=== PATIENT | male | born 2000 | race Caucasian/White ===

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

== ENCOUNTER 2022-04-26 08:37 | Emergency (ER) | payer OTHER, MEDICAID, SELFPAY ==
[2022-04-26] VITALS (26 sets, daily range): BP systolic 97–153; BP diastolic 39–91; PULSE 51–91; RESP 11–28; TEMP 36.6–36.7; O2SAT 96–100; BMI 32.6
--- NOTE | 2022-04-26 08:46 | DI.RAD.S_ITS ---
PROCEDURE: XR CHEST 1V INDICATIONS: chest pain TECHNIQUE: One view of the chest was acquired. COMPARISON: None. FINDINGS: Surgical changes and devices: None. Lungs and pleura: Lungs are clear. No pleural effusions or pneumothorax. Mediastinum: Mediastinal contours appear normal. Heart size is normal. Bones and chest wall: No suspicious bony lesions. Overlying soft tissues appear unremarkable. IMPRESSION: No evidence acute pulmonary process. Dictated by: Monico Wood M.D. on 04/26/2022 at 9:58 Approved by: Monico Wood M.D. on 04/26/2022 at 9:59
--- NOTE | 2022-04-26 08:52 | ED_ITS ---
HPI - Chest Pain General Chief Complaint: Chest Pain Stated Complaint: chest pain Time Seen by Provider: 04/26/22 08:42 Source: patient Mode of arrival: Ambulatory History of Present Illness HPI narrative: Patient here for complaints of nonreproducible right sided chest pain off and on for the past 3 months. Episodes are sporadic and not every day. They are sharp pain that radiates from right chest to sternum. No back pain no nausea no sweating no dyspnea. Last episode was 2 days ago. None today. Patient does not smoke. No history of hypercholesteremia hypertension. Patient states his father of a heart attack when he was 50 years old. Did smoke and did have high blood pressure. Patient denies any exertional chest pain or dyspnea. This can occur at rest or with movement. However when he does walk, he does not get chest pain. Patient is a catering truck driver. No prior history of blood clots in legs or lungs. Patient in no distress, no chest pain at this time. His primary care informed him to go to the emergency department, has not been in to see primary care due to scheduling, Dr. Lucas Related Data Home Medications Medication Instructions Recorded Confirmed No Known Home Medications 04/26/22 04/26/22 Allergies Allergy/AdvReac Type Severity Reaction Status Date / Time No Known Drug Allergies Allergy Verified 04/26/22 09:15 Review of Systems Review of Systems Narrative: GENERAL: negative chills, fatigue, malaise, fever, sweats. HEENT: negative sinus pain, ear pain, sore throat RESPIRATORY: negative dyspnea, cough CARDIOVASCULAR: Positive chest pain, negative palpitations GASTROINTESTINAL: negative nausea, vomiting, abdominal pain : negative dysuria, frequency, hematuria MUSCULOSKELETAL: negative muscle or bony pain SKIN: negative rash, skin lesions NEUROLOGIC: negative weakness, numbness ROS Unobtainable: All systems reviewed & are unremarkable except as noted in HPI and below Patient History Medical History (Updated 04/26/22 @ 09:07 by Nicole Ramirez MD) No significant past medical history Surgical History No pertinent past surgical history Social History Smoking Status: Never smoker Smoking Status: Never smoker alcohol intake frequency: other Substance Use Type: does not use Exam Narrative Exam Narrative: GENERAL: in no distress, not toxic not dyspneic HEAD: Normocephalic. EYES: Pupils equal round ENT: Mucous membranes moist. NECK: Trachea midline. CARDIOVASCULAR: Regular rate and rhythm without murmurs, chest is nontender, strong radial and carotid pulses RESPIRATORY: Clear to auscultation. Breath sounds equal bilaterally. No wheezes, rales, or rhonchi. GASTROINTESTINAL: Abdomen soft, non-tender EXTREMITIES: No gross deformities. BACK: No flank tenderness. NEURO: AOx4. SKIN: Warm and dry PSYCH: Not anxious, is cooperative Initial Vital Signs Initial Vital Signs: Vital Signs Temperature 98 F 04/26/22 08:47 Pulse Rate 91 H 04/26/22 08:47 Respiratory Rate 17 04/26/22 08:47 Blood Pressure 144/91 H 04/26/22 08:47 Pulse Oximetry 98 04/26/22 08:47 Oxygen Delivery Method 04/26/22 08:47 Course Orders Ordered: Discontinued Medications Sodium Chloride (Normal Saline 0.9%) 1,000 mls @ 1,000 mls/hr IV BOLUS ONE Stop: 04/26/22 10:04 Last Infusion: 04/26/22 10:23 Dose: 0 mls/hr Documented By: Admin: 04/26/22 09:14 Dose: 1,000 mls/hr Documented By: MAICOL Ondansetron HCl (Ondansetron 4 Mg/2 Ml Inj) 4 mg IV NOW ONE Stop: 04/26/22 09:09 Last Admin: 04/26/22 09:14 Dose: 4 mg Documented By: MAICOL Vital Signs Vital signs: Vital Signs - 8 hr 04/26/22 08:47 04/26/22 09:01 04/26/22 09:02 Temperature 98 F Pulse Rate 91 H 51 L Respiratory Rate 17 20 Blood Pressure 144/91 H 97/39 L Pulse Oximetry 98 98 Oxygen Delivery Method Room Air 04/26/22 09:13 04/26/22 09:13 04/26/22 09:15 Temperature Pulse Rate 63 Respiratory Rate 15 Blood Pressure 107/51 L 111/51 L Pulse Oximetry 96 Oxygen Delivery Method 04/26/22 09:15 04/26/22 09:30 04/26/22 09:30 Temperature Pulse Rate 63 64 Respiratory Rate 16 17 Blood Pressure 110/52 L Pulse Oximetry 96 99 Oxygen Delivery Method 04/26/22 09:45 04/26/22 09:45 04/26/22 10:00 Temperature Pulse Rate 60 Respiratory Rate 14 Blood Pressure 97/56 L 105/56 L Pulse Oximetry 100 Oxygen Delivery Method 04/26/22 10:00 04/26/22 10:15 04/26/22 10:15 Temperature Pulse Rate 74 81 Respiratory Rate 17 28 H Blood Pressure 103/54 L Pulse Oximetry 98 98 Oxygen Delivery Method Room Air 04/26/22 10:30 04/26/22 10:30 04/26/22 10:45 Temperature Pulse Rate 80 Respiratory Rate 23 Blood Pressure 119/55 L 119/56 L Pulse Oximetry 99 Oxygen Delivery Method Room Air 04/26/22 10:45 04/26/22 11:00 04/26/22 11:00 Temperature Pulse Rate 75 74 Respiratory Rate 12 11 L Blood Pressure 126/58 L Pulse Oximetry 98 97 Oxygen Delivery Method 04/26/22 11:15 04/26/22 11:15 04/26/22 11:30 Temperature Pulse Rate 70 78 Respiratory Rate 17 19 Blood Pressure 110/47 L Pulse Oximetry 98 98 Oxygen Delivery Method 04/26/22 11:31 04/26/22 11:31 04/26/22 11:45 Temperature Pulse Rate 79 Respiratory Rate 18 Blood Pressure 129/59 L 117/59 L Pulse Oximetry 98 Oxygen Delivery Method Room Air 04/26/22 11:45 04/26/22 12:00 04/26/22 12:00 Temperature Pulse Rate 82 81 Respiratory Rate 18 19 Blood Pressure 105/56 L Pulse Oximetry 98 97 Oxygen Delivery Method 04/26/22 12:15 04/26/22 12:15 04/26/22 12:30 Temperature Pulse Rate 80 Respiratory Rate 17 Blood Pressure 109/59 L 110/55 L Pulse Oximetry 96 Oxygen Delivery Method 04/26/22 12:30 04/26/22 12:58 04/26/22 12:58 Temperature Pulse Rate 78 83 Respiratory Rate 16 13 Blood Pressure 140/65 Pulse Oximetry 97 97 Oxygen Delivery Method 04/26/22 13:00 04/26/22 13:01 04/26/22 13:01 Temperature Pulse Rate 81 81 Respiratory Rate 16 16 Blood Pressure 127/57 L Pulse Oximetry 96 96 Oxygen Delivery Method Room Air 04/26/22 13:15 04/26/22 13:15 04/26/22 13:20 Temperature Pulse Rate 74 80 Respiratory Rate 18 22 Blood Pressure 124/62 Pulse Oximetry 97 97 Oxygen Delivery Method 04/26/22 13:20 04/26/22 13:30 04/26/22 13:30 Temperature Pulse Rate 77 Respiratory Rate 14 Blood Pressure 153/66 H 138/61 Pulse Oximetry 97 Oxygen Delivery Method 04/26/22 14:09 Temperature 98.1 F Pulse Rate 79 Respiratory Rate 23 Blood Pressure 135/69 Pulse Oximetry 97 Oxygen Delivery Method Room Air MDM - Chest Pain Lab Data 04/26/22 08:55 04/26/22 08:55 Labs: Lab Results 04/26/22 04/26/22 04/26/22 Range/Units 08:55 08:55 08:55 WBC 6.0 (4.5-11.0) X10^3/uL RBC 5.04 (4.5-5.9) X10^6/uL Hgb 15.0 (13.5-17.5) g/dL Hct 44.2 (41-53) % MCV 87.7 (80-100) fL MCH 29.8 (26-34) PG MCHC 34.0 (30-36) % RDW 12.8 (11.6-14.8) % Plt Count 213 (150-400) X10^3/uL Neut % (Auto) 56.5 (50-75) % Lymph % (Auto) 31.1 (25-40) % [place] % (Auto) 7.3 (3-14) % Eos % (Auto) 4.1 H (2-4) % Baso % (Auto) 1.0 (0-2) % Neut # (Auto) 3400 (8056-3928) /uL Lymph # (Auto) 1900 (4131-2052) /uL [place] # (Auto) 400 (0-900) /uL Eos # (Auto) 200 (0-450) /uL Baso # (Auto) 100 (0-100) /uL PT 11.9 (10.1-12.7) SECONDS INR 1.0 (0.9-1.3) APTT 32 (26-36) SECONDS D-Dimer (<500) ng/ml Sodium 139 (137-145) mmol/L Potassium 4.1 (3.4-5.1) mmol/L Chloride 100 (98-107) mmol/L Carbon Dioxide 27 (22-32) mmol/L BUN 13 (9-20) mg/dL Creatinine 0.87 (0.66-1.25) mg/dL Estimated GFR > 60 (>60) mL/min BUN/Creatinine Ratio 14.9 (6-22) Glucose 92 (70-100) mg/dL Calcium 9.0 (8.4-10.2) mg/dL Magnesium 1.8 (1.6-2.3) mg/dL Total Bilirubin 0.8 (0.2-1.3) mg/dL AST 31 (17-59) IU/L ALT 37 (<50) IU/L Alkaline Phosphatase 50 (38-126) U/L Total Creatine Kinase 98 (55-170) U/L CK-MB (CK-2) TNP CK-MB (CK-2) Rel Index TNP Troponin I < 0.012 (0.01-0.034) ng/mL Total Protein 7.8 (6.3-8.2) g/dL Albumin 4.5 (3.5-5.0) g/dL Globulin 3.3 (1.7-4.1) g/dL Albumin/Globulin Ratio 1.4 (1.0-2.8) Lipase 45 (23-300) U/L SARS-CoV-2 (PCR) (Negative) 04/26/22 04/26/22 04/26/22 Range/Units 08:55 09:15 10:55 WBC (4.5-11.0) X10^3/uL RBC (4.5-5.9) X10^6/uL Hgb (13.5-17.5) g/dL Hct (41-53) % MCV (80-100) fL MCH (26-34) PG MCHC (30-36) % RDW (11.6-14.8) % Plt Count (150-400) X10^3/uL Neut % (Auto) (50-75) % Lymph % (Auto) (25-40) % [place] % (Auto) (3-14) % Eos % (Auto) (2-4) % Baso % (Auto) (0-2) % Neut # (Auto) (3160-0606) /uL Lymph # (Auto) (4815-4528) /uL [place] # (Auto) (0-900) /uL Eos # (Auto) (0-450) /uL Baso # (Auto) (0-100) /uL PT (10.1-12.7) SECONDS INR (0.9-1.3) APTT (26-36) SECONDS D-Dimer < 215 (<500) ng/ml Sodium (137-145) mmol/L Potassium (3.4-5.1) mmol/L Chloride (98-107) mmol/L Carbon Dioxide (22-32) mmol/L BUN (9-20) mg/dL Creatinine (0.66-1.25) mg/dL Estimated GFR (>60) mL/min BUN/Creatinine Ratio (6-22) Glucose (70-100) mg/dL Calcium (8.4-10.2) mg/dL Magnesium (1.6-2.3) mg/dL Total Bilirubin (0.2-1.3) mg/dL AST (17-59) IU/L ALT (<50) IU/L Alkaline Phosphatase (38-126) U/L Total Creatine Kinase (55-170) U/L CK-MB (CK-2) CK-MB (CK-2) Rel Index Troponin I < 0.012 (0.01-0.034) ng/mL Total Protein (6.3-8.2) g/dL Albumin (3.5-5.0) g/dL Globulin (1.7-4.1) g/dL Albumin/Globulin Ratio (1.0-2.8) Lipase (23-300) U/L SARS-CoV-2 (PCR) Negative (Negative) Point of Care Testing Glucose POC 88 Imaging Data Chest x-ray: Radiologist's Impression: [address] [address] XRay Report Signed Patient: Bao Francis MR#: [id number] : 2000 Acct:[id number] Age/Sex: 21 / M Date of Service: 04/26/22 Loc: ED Accession Number: [id number] ?? Procedure: XR chest 1V Ordering Provider: Nicole Ramirez MD PROCEDURE:? XR CHEST 1V ? INDICATIONS:? chest pain ? TECHNIQUE:? One view of the chest was acquired.? ? COMPARISON:? None. ? FINDINGS:? ? Surgical changes and devices:? None.? ? Lungs and pleura:? Lungs are clear.? No pleural effusions or pneumothorax.? ? Mediastinum:? Mediastinal contours appear normal.? Heart size is normal.? ? Bones and chest wall:? No suspicious bony lesions.? Overlying soft tissues appear unremarkable.? ? IMPRESSION:? No evidence acute pulmonary process. ? ? ? Dictated by: Monico Wood M.D. on 04/26/2022 at 9:58 ? ? Approved by: Monico Wood M.D. on 04/26/2022 at 9:59 ? Echocardiogram: Radiologist's Impression: [address] [address] Echocardiography Report Signed Patient: Bao Francis MR#: [id number] : 2000 Acct:[id number] Age/Sex: 21 / M Date of Service: 04/26/22 Loc: ED Accession Number: [id number] ?? Procedure: EC echo doppler complete Ordering Provider: Nicole Ramirez MD ? [facility]---------+? [facility]? +---------+ : ? :? [address] [place] [address]. ? : ? : : ? :? [place], [place] ? : ? : : ? :? [id number] ? : ? : : ? : ? Phone: [phone]? : ? : +[phone]? [phone]? +---------+ ? Echocardiogram Report + + :Name: BAO FRANCIS? Study Date: 04/26/2022 ? ? ? Height: 68 in? : :[facility] ? ? ? ReadingLocation: ? Weight: 215 lb : : ? Gender: Male ? BSA: 2.1 m2? ? : :: 2000? Age: 21 yrs? BP: 107/51 mmHg: :Reason For Study: CHEST PAIN ? : :Ordering Physician: JAMES,? : :NICOLE ROMAN ? Performed By: Sayda Zepeda? : :Referring: NICOLE RAMIREZ MD? : + + Interpretation Summary The ejection fraction is estimated to be 60-65%. Diastolic parameters suggest probable normal left ventricular diastolic function and normal filling pressures. The right ventricle is normal in size and function. No significant valvular abnormalities. Unable to estimate PASP. ? Procedure: ? A two-dimensional transthoracic echocardiogram with color flow and Doppler was performed. The study quality was technically good. There is no prior echocardiogram noted for this patient. The patient was in sinus rhythm with heart rates between 63-74 bpm during the exam. Left Ventricle: ? The left ventricle is normal in size and wall thickness. The ejection fraction is estimated to be 60-65%. Diastolic parameters suggest probable normal left ventricular diastolic function and normal filling pressures. Right Ventricle: ? The right ventricle is normal in size and function. Atria: ? The left atrial size is normal. Right atrial size is normal. There is no Doppler evidence for an interatrial shunt. Mitral Valve: ? The mitral valve is normal in structure and function. There is trace mitral regurgitation. Aortic Valve: ? The aortic valve is trileaflet. The aortic valve opens well. There is no aortic valve stenosis. No aortic regurgitation is present. Tricuspid Valve: ? The tricuspid valve is normal in structure and function. There is a trace or physiologic amount of tricuspid regurgitation. Pulmonic Valve: ? The pulmonic valve leaflets are thin and pliable; valve motion is normal. There is no pulmonic valvular regurgitation. Great Vessels: ? The aortic root is normal size. The dimensions of the ascending aorta are normal. The IVC is of normal diameter and collapses greater than 50% with a sniff. This suggests a low right atrial pressure of 3 mm Hg. Pericardium/ Pleura ? There is no pericardial effusion. There is no pleural effusion. ? MMode/2D Measurements & Calculations LVIDd: 5.0 cm? LVOT diam: 2.3 cm LVIDs: 3.5 cm? Ao root diam: 3.0 cm FS: 29.6 % ? asc Aorta Diam: 2.3 cm EPSS: 1.2 cm ? Ao Arch Diam (Prox Trans): 2.2 cm IVSd: 0.91 cm LVPWd: 0.90 cm LV aiken. diameter/BSA (cm/m^2): 2.4 LV sys. diameter/BSA (cm/m^2): 1.7 ? LA A2 area: 16.7 cm2 ? RA long axis: 5.6 cm LA A4 area: 16.7 cm2 ? RA area: 18.1 cm2 LA length (vol): 5.4 cm? RA vol: 49.7 ml LA vol: 43.9 ml? RA : 23.6 ml/m2 LA vol index: 20.8 ml/m2 ? IVC diam: 2.1 cm ? RVD1 (basal): 3.6 cm RVD2 (mid): 3.5 cm TAPSE: 1.8 cm ? Doppler Measurements & Calculations Ao V2 max: 101.6 cm/sec? LVOT Max Richie: 82.6 cm/sec Ao V2 mean: 67.0 cm/sec? LV V1 max P.7 mmHg Ao max P.1 mmHg? LV V1 VTI: 18.8 cm Ao mean P.1 mmHg ? LUDWIN(I,D): 3.6 cm2 Ao V2 VTI: 22.2 cm ? LUDWIN(V,D): 3.4 cm2 ? sev ratio: 0.85 ? LUDWIN indexed to BSA (cm^2/m^2): 1.7 ? MV E max richie: 99.9 cm/sec? PA V2 max: 122.3 cm/sec MV A max richie: 60.3 cm/sec? PA V2 mean: 79.9 cm/sec MV E/A: 1.7? PA mean P.0 mmHg Med Peak E' Richie: 12.7 cm/sec ? ? ? PA pr(Accel): 27.6 mmHg E/E' med: 7.9 Lat Peak E' Richie: 16.7 cm/sec E/E' lat: 6.0 E/e' average: 6.9 MV dec time: 0.17 sec ? SV(LVOT): 79.2 ml ? Reading Physician:11:48 AM MDM Narrative Medical decision making narrative: Patient here for complaints of nonreproducible right sided chest pain off and on for the past 3 months. Episodes are sporadic and not every day. They are sharp pain that radiates from right chest to sternum. No back pain no nausea no sweating no dyspnea. Last episode was 2 days ago. None today. Patient does not smoke. No history of hypercholesteremia hypertension. Patient states his father of a heart attack when he was 50 years old. Did smoke and did have high blood pressure. Patient denies any exertional chest pain or dyspnea. This can occur at rest or with movement. However when he does walk, he does not get chest pain. Patient is a catering truck driver. No prior history of blood clots in legs or lungs. Patient in no distress, no chest pain at this time. His primary care informed him to go to the emergency department, has not been in to see primary care due to scheduling, Dr. Lucas After exam and history CBC CMP coags troponin chest x-ray D-dimer were ordered. Differential diagnosis includes but not limited to chest pain/stable angina unstable angina/pulmonary embolism/dissection/gallbladder disease 9:00 a.m.. Patient had 2 episodes of bradycardia, 1st of present had a 12nd syncopal duration. This occurred during blood draw. However patient had a 2nd episode without any triggers. Blood sugar and normal saline 1 L IV bolus ordered MDM CC: Chest pain Complicating co-morbidities: None Data collected from: Patient Medical records reviewed: No prior visit for chest pain Exam documented above, pertinent findings include: Nontender chest on exam, clear and equal lung sounds Lab Test results independently reviewed as above. Pertinent findings: Troponin and repeat troponin normal, D-dimer normal Independently reviewed EKG as above normal sinus rhythm normal EKG rate 76 Imaging studies independently reviewed: Chest x-ray no acute process Consultations: 11:30 a.m. Spoke with hospitalist, dr lion, will see patient for evaluation 2:[address] p[address] lion, he has seen and evaluated patient and reviewed telemetry strips. The vagal episodes. At this time you will discharge patient home. Laboratory studies and echocardiogram are reassuring. He will right consult note and he will discharge patient Treatments: Normal saline Re-evaluations: 2:10 p.m.. Spoke with patient results again and his evaluation by hospitalist, he agrees with treatment plan and follow up with primary care. Discussion: Appropriate for discharge home. Patient has been evaluated by hospitalist. Troponin and echocardiogram and EKGs are otherwise reassuring. Patient had vasovagal episode here. This is not new according to patient. He is had this in the past. Return precautions reviewed with him. He desires discharge home. Diagnosis: Atypical chest pain Discharge Plan Departure Patient Disposition: Home Clinical Impression: Atypical chest pain Instructions: DI for Atypical Chest Pain Activity Restrictions/Additional Instructions: Please see your family doctor for re-evaluation within a week. At this time laboratory studies EKG and chest x-ray are reassuring. Return if worse if any questions or concerns Prescriptions: No Action No Known Home Medications Referrals: Ned Lucas DO [Primary Care Provider] - 2 weeks Stand Alone Forms: Patient Portal/API, Work Release Note
[2022-04-26 09:04] LABS: Add Manual Diff / Slide Review NO; Basophils Absolute Auto 100 /uL (0-100); Eosinophils Absolute Auto 200 /uL (0-450); Eosinophils Percent Auto 4.1 % (2-4); Hematocrit 44.2 % (41-53); Lymphocytes Absolute Auto 1900 /uL (1100-4500); Lymphocytes Percent Auto 31.1 % (25-40); Mean Corpuscular Hemoglobin 29.8 PG (26-34); Mean Corpuscular Volume 87.7 fL (80-100); Monocytes Absolute Auto 400 /uL (0-900); Monocytes Percent Auto 7.3 % (3-14); Neutrophils Absolute Auto 3400 /uL (1500-7000); Neutrophils Percent Auto 56.5 % (50-75); Platelet Count 213 X10^3/uL (150-400); Red Blood Cell Count 5.04 X10^6/uL (4.5-5.9); Red Cell Distribution Width 12.8 % (11.6-14.8)
--- NOTE | 2022-04-26 09:09 | PC.NURSE ---
Patient with stable heart rate of 60bpm during IV insertion. At the end, patient reports I'm going to pass out now. His heart did a 10-15 second pause and he lost consciousness for 2-3 seconds before regaining consciousness and becoming, pale, nauseous, and diaphoretic. Heart rate remained in the 40's-50's. He was responsive immediately and able to tell me he did not feel well and that he has passed out from needles 3 times before. 1-2 minutes after the first incident, he had another pause and loss of consciousness, this one horter than the first. Heart rate remained 40-50 bpm for 7 minutes after initial syncopal episode. Dr. Grant aware and at bedside. Repeat EKG ordered. Glucose: 88. 1 L Normal Saline hung at this time. Hypotensive 90/44.
--- NOTE | 2022-04-26 09:10 | DI.ECHO.S_ITS ---
[facility]---------+ [facility] +---------+ : : [address] [place] : : : : [id number] : : : : Phone: [phone] : : [phone] +---------+ Echocardiogram Report + + :Name: SHERIDAN GEORGES Study Date: 04/26/2022 Height: 68 in : :[facility] ReadingLocation: Weight: 215 lb : : Gender: Male BSA: 2.1 m2 : :: 2000 Age: 21 yrs BP: 107/51 mmHg: :Reason For Study: CHEST PAIN : :Ordering Physician: JAMES, : :NICOLE ROMAN Performed By: Sayda Zepeda : :Referring: NICOLE RAMIREZ MD : + + Interpretation Summary The ejection fraction is estimated to be 60-65%. Diastolic parameters suggest probable normal left ventricular diastolic function and normal filling pressures. The right ventricle is normal in size and function. No significant valvular abnormalities. Unable to estimate PASP. Procedure: A two-dimensional transthoracic echocardiogram with color flow and Doppler was performed. The study quality was technically good. There is no prior echocardiogram noted for this patient. The patient was in sinus rhythm with heart rates between 63-74 bpm during the exam. Left Ventricle: The left ventricle is normal in size and wall thickness. The ejection fraction is estimated to be 60-65%. Diastolic parameters suggest probable normal left ventricular diastolic function and normal filling pressures. Right Ventricle: The right ventricle is normal in size and function. Atria: The left atrial size is normal. Right atrial size is normal. There is no Doppler evidence for an interatrial shunt. Mitral Valve: The mitral valve is normal in structure and function. There is trace mitral regurgitation. Aortic Valve: The aortic valve is trileaflet. The aortic valve opens well. There is no aortic valve stenosis. No aortic regurgitation is present. Tricuspid Valve: The tricuspid valve is normal in structure and function. There is a trace or physiologic amount of tricuspid regurgitation. Pulmonic Valve: The pulmonic valve leaflets are thin and pliable; valve motion is normal. There is no pulmonic valvular regurgitation. Great Vessels: The aortic root is normal size. The dimensions of the ascending aorta are normal. The IVC is of normal diameter and collapses greater than 50% with a sniff. This suggests a low right atrial pressure of 3 mm Hg. Pericardium/ Pleura There is no pericardial effusion. There is no pleural effusion. MMode/2D Measurements & Calculations LVIDd: 5.0 cm LVOT diam: 2.3 cm LVIDs: 3.5 cm Ao root diam: 3.0 cm FS: 29.6 % asc Aorta Diam: 2.3 cm EPSS: 1.2 cm Ao Arch Diam (Prox Trans): 2.2 cm IVSd: 0.91 cm LVPWd: 0.90 cm LV aiken. diameter/BSA (cm/m^2): 2.4 LV sys. diameter/BSA (cm/m^2): 1.7 LA A2 area: 16.7 cm2 RA long axis: 5.6 cm LA A4 area: 16.7 cm2 RA area: 18.1 cm2 LA length (vol): 5.4 cm RA vol: 49.7 ml LA vol: 43.9 ml RA : 23.6 ml/m2 LA vol index: 20.8 ml/m2 IVC diam: 2.1 cm RVD1 (basal): 3.6 cm RVD2 (mid): 3.5 cm TAPSE: 1.8 cm Doppler Measurements & Calculations Ao V2 max: 101.6 cm/sec LVOT Max Richie: 82.6 cm/sec Ao V2 mean: 67.0 cm/sec LV V1 max P.7 mmHg Ao max P.1 mmHg LV V1 VTI: 18.8 cm Ao mean P.1 mmHg LUDWIN(I,D): 3.6 cm2 Ao V2 VTI: 22.2 cm LUDWIN(V,D): 3.4 cm2 sev ratio: 0.85 LUDWIN indexed to BSA (cm^2/m^2): 1.7 MV E max richie: 99.9 cm/sec PA V2 max: 122.3 cm/sec MV A max richie: 60.3 cm/sec PA V2 mean: 79.9 cm/sec MV E/A: 1.7 PA mean P.0 mmHg Med Peak E' Richie: 12.7 cm/sec PA pr(Accel): 27.6 mmHg E/E' med: 7.9 Lat Peak E' Richie: 16.7 cm/sec E/E' lat: 6.0 E/e' average: 6.9 MV dec time: 0.17 sec SV(LVOT): 79.2 ml Reading Physician:11:48 AM
[2022-04-26 09:12] LABS: Prothrombin Time 11.9 SECONDS (10.1-12.7)
[2022-04-26 09:14] LABS: PTT Partial Thromboplastin Tim 32 SECONDS (26-36)
[2022-04-26] MEDS: ONDANSETRON 4 MG/2 ML INJ IV (09:14)
[2022-04-26] MEDS: SODIUM CHLORIDE 0.9% 1,000 ML 1000 ML IV (09:14)
[2022-04-26 09:16] LABS: Alanine Aminotransferase 37 IU/L (<50); Albumin 4.5 g/dL (3.5-5.0); Albumin Globulin Ratio 1.4 (1.0-2.8); Alkaline Phosphatase 50 U/L (38-126); Aspartate Aminotransferase 31 IU/L (17-59); BUN Creatinine Ratio 14.9 (6-22); Bilirubin Total 0.8 mg/dL (0.2-1.3); Blood Urea Nitrogen 13 mg/dL (9-20); Carbon Dioxide 27 mmol/L (22-32); Chloride 100 mmol/L (98-107); Creatine Kinase 98 U/L (55-170); Estimated Glomerular Filt Rate > 60 mL/min (>60); Globulin 3.3 g/dL (1.7-4.1); Glucose 92 mg/dL (70-100); HEMOLYSIS 18 (0-50); Lipase 45 U/L (23-300); Magnesium 1.8 mg/dL (1.6-2.3); Potassium 4.1 mmol/L (3.4-5.1); Sodium 139 mmol/L (137-145); Total Protein 7.8 g/dL (6.3-8.2)
[2022-04-26 09:22] LABS: D Dimer < 215 ng/ml (<500)
[2022-04-26 09:28] LABS: Troponin I < 0.012 ng/mL (0.01-0.034)
[2022-04-26 09:48] LABS: COVID19 -Nasal RAPID Negative (Negative)
--- NOTE | 2022-04-26 10:17 | PC.NURSE ---
Since 2nd syncopal episode as documented, no further episodes of bradycardia.
[2022-04-26 11:23] LABS: Troponin I < 0.012 ng/mL (0.01-0.034)
--- NOTE | 2022-04-26 13:57 | PM.CN ---
History of Present Illness Consult details Date Patient Seen: 04/26/22 Time Patient Seen: 12:00 Chief complaint: chest pain Narrative: Mr. Francis is a 21M who presents to the hospital with chronic intermittent right side chest pain. He notes sudden onset, unprovoked, right chest pain. No shortness of breath. No radiation. Resolves usually in minutes. It has been occurring for months. His last episode was a few days ago. He presents here due to difficulty following up with his PCP. No smoking history. In the ED workup was done, vitals notable for mildly elevated blood pressure. Labs notable for two negative troponins. Chest xray with no acute proces. EKG with no acute ischemia. ECHO with no acute abnormality. He had two syncopal episodes when having an IV placed. He said this is a repeating and common occurrence for him. He was noted to have sinus pause when this happened on telemetry. After those episodes in quick succession he had no further episode. ED consult was requested for help in management Meds Home Medications and Allergies Home Medications Medication Instructions Recorded Confirmed Type No Known Home Medications 04/26/22 04/26/22 History Allergies Allergy/AdvReac Type Severity Reaction Status Date / Time No Known Drug Allergies Allergy Verified 04/26/22 09:15 Review of Systems Review of Systems Narrative: 14 systems reviewed and negative aside from what is noted in HPI Exam Vital Signs (past 8 hours): - 04/26/22 08:47 04/26/22 09:01 04/26/22 09:02 Temperature 98 F Pulse Rate 91 H 51 L Respiratory Rate 17 20 Blood Pressure 144/91 H 97/39 L Pulse Oximetry 98 98 Oxygen Delivery Method Room Air 04/26/22 09:13 04/26/22 09:13 04/26/22 09:15 Temperature Pulse Rate 63 Respiratory Rate 15 Blood Pressure 107/51 L 111/51 L Pulse Oximetry 96 Oxygen Delivery Method 04/26/22 09:15 04/26/22 09:30 04/26/22 09:30 Temperature Pulse Rate 63 64 Respiratory Rate 16 17 Blood Pressure 110/52 L Pulse Oximetry 96 99 Oxygen Delivery Method 04/26/22 09:45 04/26/22 09:45 04/26/22 10:00 Temperature Pulse Rate 60 Respiratory Rate 14 Blood Pressure 97/56 L 105/56 L Pulse Oximetry 100 Oxygen Delivery Method 04/26/22 10:00 04/26/22 10:15 04/26/22 10:15 Temperature Pulse Rate 74 81 Respiratory Rate 17 28 H Blood Pressure 103/54 L Pulse Oximetry 98 98 Oxygen Delivery Method Room Air 04/26/22 10:30 04/26/22 10:30 04/26/22 10:45 Temperature Pulse Rate 80 Respiratory Rate 23 Blood Pressure 119/55 L 119/56 L Pulse Oximetry 99 Oxygen Delivery Method Room Air 04/26/22 10:45 04/26/22 11:00 04/26/22 11:00 Temperature Pulse Rate 75 74 Respiratory Rate 12 11 L Blood Pressure 126/58 L Pulse Oximetry 98 97 Oxygen Delivery Method 04/26/22 11:15 04/26/22 11:15 04/26/22 11:30 Temperature Pulse Rate 70 78 Respiratory Rate 17 19 Blood Pressure 110/47 L Pulse Oximetry 98 98 Oxygen Delivery Method 04/26/22 11:31 04/26/22 11:31 04/26/22 11:45 Temperature Pulse Rate 79 Respiratory Rate 18 Blood Pressure 129/59 L 117/59 L Pulse Oximetry 98 Oxygen Delivery Method Room Air 04/26/22 11:45 04/26/22 12:00 04/26/22 12:00 Temperature Pulse Rate 82 81 Respiratory Rate 18 19 Blood Pressure 105/56 L Pulse Oximetry 98 97 Oxygen Delivery Method 04/26/22 12:15 04/26/22 12:15 04/26/22 12:30 Temperature Pulse Rate 80 Respiratory Rate 17 Blood Pressure 109/59 L 110/55 L Pulse Oximetry 96 Oxygen Delivery Method 04/26/22 12:30 04/26/22 12:58 04/26/22 12:58 Temperature Pulse Rate 78 83 Respiratory Rate 16 13 Blood Pressure 140/65 Pulse Oximetry 97 97 Oxygen Delivery Method 04/26/22 13:00 04/26/22 13:01 04/26/22 13:01 Temperature Pulse Rate 81 81 Respiratory Rate 16 16 Blood Pressure 127/57 L Pulse Oximetry 96 96 Oxygen Delivery Method Room Air 04/26/22 13:15 04/26/22 13:15 04/26/22 13:20 Temperature Pulse Rate 74 80 Respiratory Rate 18 22 Blood Pressure 124/62 Pulse Oximetry 97 97 Oxygen Delivery Method 04/26/22 13:20 04/26/22 13:30 04/26/22 13:30 Temperature Pulse Rate 77 Respiratory Rate 14 Blood Pressure 153/66 H 138/61 Pulse Oximetry 97 Oxygen Delivery Method Oxygen Delivery Method Room Air Narrative Exam Narrative: GEN: no acute distress CV: regular rate and rhythm, no murmurs PULM: clear bilaterally, no wheezes, rhonchi, rales ABD: soft, nontender, nondistended, no organomegaly Objective Labs 04/26/22 08:55 04/26/22 08:55 Labs: Laboratory Results - last 24 hr 04/26/22 04/26/22 04/26/22 08:55 08:55 08:55 WBC 6.0 RBC 5.04 Hgb 15.0 Hct 44.2 MCV 87.7 MCH 29.8 MCHC 34.0 RDW 12.8 Plt Count 213 Neut % (Auto) 56.5 Lymph % (Auto) 31.1 [place] % (Auto) 7.3 Eos % (Auto) 4.1 H Baso % (Auto) 1.0 Neut # (Auto) 3400 Lymph # (Auto) 1900 [place] # (Auto) 400 Eos # (Auto) 200 Baso # (Auto) 100 PT 11.9 INR 1.0 APTT 32 D-Dimer Sodium 139 Potassium 4.1 Chloride 100 Carbon Dioxide 27 BUN 13 Creatinine 0.87 Estimated GFR > 60 BUN/Creatinine Ratio 14.9 Glucose 92 Calcium 9.0 Magnesium 1.8 Total Bilirubin 0.8 AST 31 ALT 37 Alkaline Phosphatase 50 Total Creatine Kinase 98 CK-MB (CK-2) TNP CK-MB (CK-2) Rel Index TNP Troponin I < 0.012 Total Protein 7.8 Albumin 4.5 Globulin 3.3 Albumin/Globulin Ratio 1.4 Lipase 45 SARS-CoV-2 (PCR) 04/26/22 04/26/22 04/26/22 08:55 09:15 10:55 WBC RBC Hgb Hct MCV MCH MCHC RDW Plt Count Neut % (Auto) Lymph % (Auto) [place] % (Auto) Eos % (Auto) Baso % (Auto) Neut # (Auto) Lymph # (Auto) [place] # (Auto) Eos # (Auto) Baso # (Auto) PT INR APTT D-Dimer < 215 Sodium Potassium Chloride Carbon Dioxide BUN Creatinine Estimated GFR BUN/Creatinine Ratio Glucose Calcium Magnesium Total Bilirubin AST ALT Alkaline Phosphatase Total Creatine Kinase CK-MB (CK-2) CK-MB (CK-2) Rel Index Troponin I < 0.012 Total Protein Albumin Globulin Albumin/Globulin Ratio Lipase SARS-CoV-2 (PCR) Negative [facility] Medical History (Updated 04/26/22 @ 09:07 by Lucas Grant MD) No significant past medical history Surgical History No pertinent past surgical history Tobacco & Substance Use Smoking Status: Never smoker Assessment & Plan Assessment & Plan narrative: Mr. Francis has been having long standing chronic intermittent right sided chest pain. There are not concerning findings on his workup today. He has had two negative troponins and negative EKG. His symptoms are more likely musculoskeletal in nature. He is encouraged to take pain medications if this reoccurs and follow with his PCP. His syncope appears clearly provoked by IV insertion, and has had repeatedly happened to him in the past, likely due to increased vagal tone and vasovagal event. He can be discharged and follow up with his PCP and he was given return precautions if his pain worsened, or he developed shortness of breath to return to the ED Time Spent With Patient Critical Care time: I spent a total of [] minutes of critical care time on this patient's care today; this time is exclusive of procedural time.
--- NOTE | 2022-04-27 09:19 | PC.NURSE ---
Work note printed per Dr. Medeiros
== END 2022-04-26 14:10 | disposition home or self-care (01) ==
PROVIDERS: Emergency Provider Emergency Medicine; PCP Family Medicine
DX: R07.89 Other chest pain (principal); I10 Essential (primary) hypertension; Z20.822 Contact with and (suspected) exposure to COVID-19
CPT/HCPCS: 36415; 71045; 80053; 82550; 82962; 83690; 83735; 84484; 85025; 85379; 85610; 85730; 87635; 93005; 93010; 93306; 96361; 96374; 99284; 99285; C9803; J2405

== ENCOUNTER → 2022-05-14 08:46 | Outpatient (CLI) | payer OTHER, MEDICAID, SELFPAY | PROVIDERS: PCP Family Medicine; Referring Provider Nurse Practitioner Family; Visit Provider Nurse Practitioner Family | DX: R07.89 Other chest pain (principal); Z82.49 Family history of ischemic heart disease and other diseases of the circulatory system | CPT/HCPCS: 93242 ==

== ENCOUNTER → 2022-05-18 09:29 | Outpatient (CLI) | payer OTHER, MEDICAID, SELFPAY ==
[2022-05-18 11:24] LABS: Cholesterol 182 mg/dL (140-199); HDL Cholesterol 46 mg/dL (40-60); LDL Cholesterol Calculated 111 mg/dL (<100); Triglycerides 125 mg/dL (35-150)
== END ==
PROVIDERS: PCP Family Medicine; Referring Provider Family Medicine; Visit Provider Family Medicine
DX: R07.89 Other chest pain (principal); Z82.49 Family history of ischemic heart disease and other diseases of the circulatory system
CPT/HCPCS: 36415; 80061

== ENCOUNTER → 2022-07-17 07:43 | Outpatient (CLI) | payer OTHER, MEDICAID, SELFPAY ==
[2022-07-17 08:52] LABS: COVID-19 CEPHEID 4-PLEX PCR Negative (Negative); Influenza A - CEPHEID Flu A NEGATIVE (NEGATIVE); Influenza B - CEPHEID Flu B NEGATIVE (NEGATIVE); Respiratory Syncytial Virus Negative (Negative)
== END ==
PROVIDERS: PCP Family Medicine; Visit Provider Physician Assistant
DX: R05.1 Acute cough (principal)
CPT/HCPCS: 0241U

== ENCOUNTER 2022-08-06 18:30 | Emergency (ER) | payer OTHER, MEDICAID, SELFPAY ==
[2022-08-06 18:34] VITALS: BP 135/77; PULSE 101; RESP 16; TEMP 36.9; O2SAT 97; BMI 34.9
--- NOTE | 2022-08-06 18:40 | DI.RAD.S_ITS ---
PROCEDURE: XR HAND RT MIN 3V INDICATIONS: injury TECHNIQUE: 3 views of the hand(s) acquired. COMPARISON: , CR, XR HAND RT MIN 3V, 04/17/2021, 15:19. FINDINGS: Bones: Old deformity of the 5th metacarpal. Acute mildly displaced fracture of the 4th metacarpal shaft. Soft tissues: No suspicious calcifications. IMPRESSION: Acute 4th metacarpal shaft mildly displaced fracture. Old 5th metacarpal deformity also present. Dictated by: Ceasar Jha M.D. on 08/06/2022 at 19:29 Approved by: Ceasar Jha M.D. on 08/06/2022 at 19:30
[2022-08-06] MEDS: ACETAMINOPHEN 325 MG TABLET 975 MG PO (22:10)
[2022-08-06] MEDS: IBUPROFEN 400 MG TABLET 800 MG PO (22:11)
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
[2022-08-06 23:04] VITALS: BP 122/74; PULSE 70; RESP 16; TEMP 36.6; O2SAT 98
[2022-08-06] MEDS: HYDROCODONE/ACET 5/325 PREPACK 1 BOTTLE MISC (23:04)
== END 2022-08-06 23:07 | disposition home or self-care (01) ==
PROVIDERS: Emergency Provider Emergency Medicine; PCP Family Medicine
DX: S62.324A Displaced fracture of shaft of fourth metacarpal bone, right hand, initial encounter for closed fracture (principal); X58.XXXA Exposure to other specified factors, initial encounter
CPT/HCPCS: 73130; 99283

== ENCOUNTER 2022-11-01 01:59 | Emergency (ER) | payer OTHER, MEDICAID, SELFPAY ==
[2022-11-01] VITALS (7 sets, daily range): BP systolic 140–160; BP diastolic 68–101; PULSE 98–112; RESP 18–20; TEMP 36.8; O2SAT 97–99; BMI 34.9
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
[2022-11-01 02:22] LABS: Add Manual Diff / Slide Review NO; Basophils Absolute Auto 100 /uL (0-100); Eosinophils Absolute Auto 200 /uL (0-450); Hematocrit 43.4 % (41-53); Hemoglobin 15.2 g/dL (13.5-17.5); Lymphocytes Absolute Auto 2600 /uL (1100-4500); Lymphocytes Percent Auto 23.3 % (25-40); Mean Corpuscular HGB Conc 34.9 % (30-36); Mean Corpuscular Hemoglobin 30.3 PG (26-34); Mean Corpuscular Volume 86.7 fL (80-100); Monocytes Absolute Auto 600 /uL (0-900); Monocytes Percent Auto 5.8 % (3-14); Neutrophils Absolute Auto 7600 /uL (1500-7000); Neutrophils Percent Auto 67.9 % (50-75); Platelet Count 232 X10^3/uL (150-400); Red Cell Distribution Width 13.1 % (11.6-14.8); White Blood Cell Count 11.2 X10^3/uL (4.5-11.0)
[2022-11-01 02:26] LABS: Alanine Aminotransferase 34 IU/L (<50); Albumin 4.5 g/dL (3.5-5.0); Albumin Globulin Ratio 1.2 (1.0-2.8); Alkaline Phosphatase 64 U/L (38-126); Aspartate Aminotransferase 40 IU/L (17-59); BUN Creatinine Ratio 15.9 (6-22); Bilirubin Total 0.6 mg/dL (0.2-1.3); Blood Urea Nitrogen 17 mg/dL (9-20); Calcium 9.4 mg/dL (8.4-10.2); Carbon Dioxide 28 mmol/L (22-32); Chloride 103 mmol/L (98-107); Estimated Glomerular Filt Rate > 60 mL/min (>60); Globulin 3.7 g/dL (1.7-4.1); Glucose 109 mg/dL (70-100); Lipase 57 U/L (23-300); Sodium 137 mmol/L (137-145); Total Protein 8.2 g/dL (6.3-8.2)
[2022-11-01 02:27] LABS: HEMOLYSIS 92 (0-50)
[2022-11-01 02:28] LABS: Potassium 4.4 mmol/L (3.4-5.1)
--- NOTE | 2022-11-01 02:49 | PC.NURSE ---
02:05 Dr Zheng with patient in room. C-Spine cleared at 02:[address] Zheng.
[2022-11-01] MEDS: HYDROCODONE/ACET 5/325 TABLET 1 TAB PO (04:13)
== END 2022-11-01 04:37 | disposition home or self-care (01) ==
PROVIDERS: Emergency Provider Emergency Medicine; PCP Family Medicine
DX: S30.0XXA Contusion of lower back and pelvis, initial encounter (principal); S30.810A Abrasion of lower back and pelvis, initial encounter; R10.2 Pelvic and perineal pain; M79.672 Pain in left foot; V29.99XA Rider (driver) (passenger) of other motorcycle injured in unspecified traffic accident, initial encounter
CPT/HCPCS: 71045; 73630; 74177; 80053; 83690; 85025; 99284; Q9967

== ENCOUNTER → 2022-11-21 09:25 | Outpatient (CLI) | payer OTHER, SELFPAY ==
--- NOTE | 2022-11-21 09:26 | DI.RAD.S_ITS ---
PROCEDURE: XR FOOT LT MIN 3V INDICATIONS: eval L foot pain TECHNIQUE: 3 views of the foot were acquired. COMPARISON: Merged With [facility], , XR FOOT LT MIN 3V, 11/01/2022, 2:04. FINDINGS: Bones: No fractures or dislocations. No suspicious bony lesions. Soft tissues: No tibiotalar joint effusion. Achilles tendon appears normal. IMPRESSION: Unremarkable left foot radiographs Approved by: Bud Ritter M.D. on 11/21/2022 at 10:38
== END ==
PROVIDERS: PCP Family Medicine; Referring Provider Family Medicine; Visit Provider Family Medicine
DX: M79.672 Pain in left foot (principal)
CPT/HCPCS: 73630

== ENCOUNTER 2023-06-04 08:05 | Emergency (ER) | payer OTHER, SELFPAY ==
[2023-06-04 08:18] VITALS: BP 137/78; PULSE 105; RESP 18; TEMP 37.2; O2SAT 97; BMI 37.2
== END 2023-06-04 10:25 | disposition left against medical advice (07) ==
PROVIDERS: Emergency Provider Emergency Medicine; PCP Family Medicine
CPT/HCPCS: 99281

== ENCOUNTER 2025-02-15 07:31 | Emergency (ER) | payer OTHER, SELFPAY ==
--- NOTE | 2025-02-15 07:37 | ED.NECK ---
HPI - Neck Pain/Injury General Chief Complaint: Upper Respiratory Symptoms Stated Complaint: Swollen Tonsils for a week Time Seen by Provider: 02/15/25 07:37 History of Present Illness HPI Narrative: Patient has history of strep throat in the past. Complaints 1 week of sore throat with painful eating. No trouble breathing but at nighttime makes it more difficult because he is a mouth breather he states. No sick contacts. No cough cold or congestion. Has sore lymph nodes at anterior neck. Patient in no distress. Patient sent here by his employer for work note and to stay home. Denies any allergies to medications. Related Data Previous Rx's ?Medication ?Instructions ?Recorded amoxicillin 875 mg-potassium 1 tab PO BID #14 tabs 02/15/25 clavulanate 125 mg tablet methylprednisolone 4 mg tablets in See Rx Instructions PO .COMPLEX 02/15/25 a dose pack (Medrol ([place])) #21 ea Allergies Allergy/AdvReac Type Severity Reaction Status Date / Time No Known Drug Allergies Allergy Verified 02/15/25 07:38 Review of Systems Review of Systems Narrative: GENERAL: Negative chills, fatigue, malaise, fever, sweats. HEENT: Negative sinus pain, ear pain, positive sore throat RESPIRATORY: Negative dyspnea, cough CARDIOVASCULAR: Negative chest pain, palpitations GASTROINTESTINAL: Negative vomiting, nausea, abdominal pain : Negative dysuria, frequency, hematuria MUSCULOSKELETAL: Negative muscle or bony pain SKIN: Negative rash, skin lesions NEUROLOGIC: Negative weakness, numbness ROS Unobtainable: All systems reviewed & are unremarkable except as noted in HPI and below Patient History Medical History Family history of myocardial infarction at age less than 60 No significant past medical history Surgical History No pertinent past surgical history Social History Smoking Status: Never smoker alcohol intake frequency: other Exam Narrative Exam Narrative: GENERAL: in no distress, not toxic not dyspneic HEAD: Normocephalic. EYES: Pupils equal round ENT: Mucous membranes moist. Symmetric bilateral pharyngeal erythema edema without exudates. Uvula is midline. No tongue elevation, no drooling. No malocclusion or trismus. NECK: Trachea midline. Mild bilateral submandibular tenderness. Trachea is midline. No stridor. CARDIOVASCULAR: Regular rate and rhythm RESPIRATORY: Clear to auscultation. Breath sounds equal bilaterally. No wheezes, rales, or rhonchi. NEURO: AOx4. Clear speech SKIN: Warm and dry PSYCH: Not anxious, is cooperative Initial Vital Signs Initial Vital Signs: Vital Signs Temperature 98.1 F 02/15/25 07:38 Pulse Rate 108 H 02/15/25 07:38 Respiratory Rate 18 02/15/25 07:38 Blood Pressure 142/81 H 02/15/25 07:38 Pulse Oximetry 94 02/15/25 07:38 Oxygen Delivery Method Room Air 02/15/25 07:38 Course Orders Ordered: ED Orders 02/15/25 07:41 Strep Grp A by PCR Rapid Stat Discontinued Medications Amoxicillin/Clavulanate Potassium (Amoxicillin/Clav 875/125 Mg) 1 tab PO NOW ONE Stop: 02/15/25 07:39 Last Admin: 02/15/25 07:49 Dose: 1 tab Documented By: GABE Prednisone (Prednisone 20 Mg Tablet) 40 mg PO NOW ONE Stop: 02/15/25 07:39 Last Admin: 02/15/25 07:49 Dose: 40 mg Documented By: GABE Vital Signs Vital signs: Vital Signs - 8 hr 02/15/25 07:38 Temperature 98.1 F Pulse Rate 108 H Respiratory Rate 18 Blood Pressure 142/81 H Pulse Oximetry 94 Oxygen Delivery Method Room Air MDM - Neck Pain/Injury Lab Data Labs: Lab Results 02/15/25 Range/Units 07:41 Group A Strep (PCR) Positive H (Negative) MDM Narrative Medical decision making narrative: Patient has history of strep throat in the past. Complaints 1 week of sore throat with painful eating. No trouble breathing but at nighttime makes it more difficult because he is a mouth breather he states. No sick contacts. No cough cold or congestion. Has sore lymph nodes at anterior neck. Patient in no distress. Patient sent here by his employer for work note and to stay home. Denies any allergies to medications MDM After history and exam, strep screen Augmentin prednisone, no blood work or imaging indicated. Exam is reassuring. Vital signs reassuring Differential considered: Includes but not limited to strep throat viral pharyngitis retropharyngeal abscess peritonsillar abscess Medical records reviewed: No recent visit for this complaint Lab Test results independently reviewed as above. Pertinent findings: Positive strep Re-evaluations: Reviewed exam findings with patient treatment plan. Agrees. Airway intact. Return precautions reviewed. He desires discharge home. At time of discharge patient was updated tested positive for strep. Discussion: Appropriate for discharge home. Exam is reassuring. Treated clinically for strep throat. Airway intact. Work note provided. He desires discharge home Diagnosis: Pharyngitis Discharge Plan Departure Patient Disposition: Home Clinical Impression: Strep throat Instructions: DI for Pharyngitis/Tonsillopharyngitis -- Adult, DI for Strep Throat Activity Restrictions/Additional Instructions: Continue oral antibiotic later today/this evening. Continue steroid pack tomorrow. See family doctor in a week for re-evaluation. Keep well hydrated. Return if worse if any questions or concerns. Prescriptions have been sent to your pharmacy to [facility]. Work note has been provided for you. Prescriptions: New methylprednisolone [Medrol ([place])] 4 mg tablets,dose pack See Rx Instructions .ROUTE .COMPLEX Qty: 21 0RF Rx Instructions: orally per package directions amoxicillin-pot clavulanate 875-125 mg tablet 1 tab PO BID Qty: 14 0RF Referrals: Ned Lucas DO [Primary Care Provider, Family Practice] Stand Alone Forms: Patient Portal/API, Work Release Note
[2025-02-15 07:38] VITALS: BP 142/81; PULSE 108; RESP 18; TEMP 36.7; O2SAT 94; BMI 37.7
[2025-02-15] MEDS: AMOXICILLIN/CLAV 875/125 MG 1 TAB PO (07:49)
[2025-02-15 07:58] LABS: Strep Grp A by PCR Rapid Positive (Negative)
== END 2025-02-15 08:03 | disposition home or self-care (01) ==
PROVIDERS: Emergency Provider Emergency Medicine; PCP Family Medicine
DX: J02.0 Streptococcal pharyngitis (principal)
CPT/HCPCS: 87651; 99283